=== PATIENT | female | born 2000 | race Caucasian/White ===

== ENCOUNTER 2019-04-06 23:40 | Emergency (ER) | payer SELFPAY ==
--- NOTE | 2019-04-07 00:07 | PHYS DOC ---
Past History Past Medical History Scoliosis Smoking: Non-smoker Alcohol Use: None Drug Use: None Adult General HPI HPI Patient is a 18-year-old female presents with back pain and numbness in bilateral hands. This has been present for the past 4 hours. Patient has a history of scoliosis with some chronic back pain issues. 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 No loss of bowel or bladder control. No trauma. No fever. No difficulty breathing. No relief with home ibuprofen. Symptoms are moderate to severe in intensity.[] Review of Systems Review of Systems Constitutional: Denies fever or chills [] Eyes: Denies change in visual acuity, redness, or eye pain [] HENT: Denies nasal congestion or sore throat [] Respiratory: Denies cough or shortness of breath [] Cardiovascular: No chest pain or palpitations[] GI: Denies abdominal pain, nausea, vomiting, bloody stools or diarrhea [] : Denies dysuria or hematuria [] Musculoskeletal: See history of present illness[] Integument: Denies rash or skin lesions [] Neurologic: Denies headache, focal weakness or sensory changes [] Endocrine: Denies polyuria or polydipsia [] All other systems were reviewed and found to be within normal limits, except as documented in this note. Physical Exam Physical Exam Constitutional: Well developed, well nourished, no acute distress, non-toxic appearance. [] HENT: Normocephalic, atraumatic, bilateral external ears normal, oropharynx moist, no oral exudates, nose normal. [] Eyes: PERRLA, EOMI, conjunctiva normal, no discharge. [] Neck: Normal range of motion, no tenderness, supple, no stridor. [] Cardiovascular:Heart rate regular rhythm, no murmur [] Lungs & Thorax: Bilateral breath sounds clear to auscultation [] Abdomen: Bowel sounds normal, soft, no tenderness, no masses, no pulsatile masses. [] Skin: Warm, dry, no erythema, no rash. [] Back: Diffuse tenderness, no specific midline tenderness, no step-off, no crepitus, normal gait., no CVA tenderness. [] Extremities: No tenderness, no cyanosis, no clubbing, ROM intact, no edema. [] Neurologic: Alert and oriented X 3, normal motor function, normal sensory function, no focal deficits noted. [] Psychologic: Affect normal, judgement normal, mood normal. [] EKG EKG [] Radiology/Procedures Radiology/Procedures Thoracic spine x-ray series shows no significant scoliosis, no fracture, no subluxation.[] Course & Med Decision Making Course & Med Decision Making Pertinent Labs and Imaging studies reviewed. (See chart for details) ED course: Patient arrived, was placed in bed, and tolerated exam well. She was given medicine for the pain which didn't improve it. She was transported to and from radiology with any complications. After return of the imaging findings, th tisha were discussed with patient and family voiced understanding. All questions were answered. Patient was discharged in improved condition. Medical decision making: There is no evidence of fracture or subluxation. No evidence of neurologic compromise.[] Dragon Disclaimer Dragon Disclaimer This electronic medical record was generated, in whole or in part, using a voice recognition dictation system. Departure Departure: Impression: Primary Impression: Back pain Disposition: HOME, SELF-CARE Condition: IMPROVED Referrals: PATRICIA RICKETTS MD (PCP) Follow-up in 2 days Patient Instructions: Back Pain, Adult Additional Instructions: Follow-up with your regular doctor in 2 days. Take the medication as prescribed. Return to the ER if worsening discomfort or any other concerns. Scripts Orphenadrine Citrate (ORPHENADRINE CITRATE) 100 Mg Tablet.er 100 MG PO BID for BACK PAIN, #20 TAB.SR Prov: NORA CANTRELL DO 04/07/19 Meloxicam (MELOXICAM) 7.5 Mg Tablet 7.5 MG PO DAILY for PAIN, #20 TAB Prov: NORA CANTRELL DO 04/07/19 Problem Qualifiers Primary Impression: Back pain Back pain location: thoracic back pain Chronicity: acute Back pain laterality: bilateral Qualified Codes: M54.6 - Pain in thoracic spine NORA CANTRELL DO Apr 07, 2019 00:07
[2019-04-07] MEDS ORDERED: KETOROLAC 15 MG/ML VIAL. IM ONE (00:30)
[2019-04-07] MEDS ORDERED: ORPHENADRINE CITRATE 60 MG/2 ML VIAL. IM ONE (00:30)
[2019-04-07] MEDS ORDERED: ORPH-16 PO (01:24)
[2019-04-07] MEDS ORDERED: MELO7.5T29 PO (01:24)
--- NOTE | 2019-04-07 01:58 | RAD ---
Three-view thoracic spine radiographs 04/07/2019 CLINICAL HISTORY: Mid back pain. AP, two lateral and a swimmer's lateral digital radiographs of the thoracic vertebrae were obtained. A left-sided vagal nerve stimulator is noted. Minimal S-shaped curvature of the thoracolumbar spine is seen. No fracture or subluxation of the thoracic vertebrae is seen. No significant degenerative changes are noted. No paravertebral soft tissue swelling is seen. IMPRESSION: No acute osseous abnormality is seen. Electronically signed by: Tate Marcano MD (04/07/2019 1:56 AM) [facility]
== END 2019-04-07 01:33 | disposition home or self-care (01) ==
LOC: ER 23:40
DX: M54.6 Pain in thoracic spine (principal); G89.29 Other chronic pain; R20.0 Anesthesia of skin
CPT/HCPCS: 72072; 81025; 96372; 99284; J1885; J2360

== ENCOUNTER 2020-04-28 21:41 | Emergency (ER) | payer MEDICAID ==
[~2020-04-28] VITALS: Ht 172.7 cm; Wt 138.6 kg
[~2020-04-28 21:41] MED LIST: MELO7.5T29 PO; ORPH-16 PO
--- NOTE | 2020-04-28 22:06 | PHYS DOC ---
Past History Past Medical History: Anxiety, Seizure Past Surgical History: No Surgical History Smoking: Non-smoker Alcohol Use: None Drug Use: None General Adult EDM: Chief Complaint: CHEST PAIN HPI: HPI: Patient is a 19 year old female who presents for evaluation of left-sided chest pain and left-sided abdominal pain. Onset of symptoms over the past couple of hours. Patient states she has had some diminished urination today after being outside in the heat. Patient states she is not been drinking enough fluid today. She states she felt dizzy and nauseated prior to arrival. There is no reported burning urgency or frequency with urination however. Patient has a history of prior seizures but has not had one recently. Patient denies other complaints and has stable vital signs Review of Systems: Review of Systems: Constitutional: Denies fever or chills Eyes: Denies change in visual acuity HENT: Denies nasal congestion or sore throat Respiratory: Denies cough or shortness of breath Cardiovascular: Denies chest pain or edema GI: left side abdominal pain with nausea, but no vomiting, bloody stools or diarrhea : Denies dysuria Musculoskeletal: left flank/back pain but no joint pain Integument: Denies rash Neurologic: Denies headache, focal weakness or sensory changes Endocrine: Denies polyuria or polydipsia Lymphatic: Denies swollen glands Psychiatric: Denies depression has anxiety Heart Score: HEART Score for Chest Pain: HEART Score for Chest Pain Response (Comments) Value History Slighlty/Non-Suspicious 0 ECG Normal 0 Age < 45 0 Risk Factors No Risk Factors 0 Troponin < Normal Limit 0 Total 0 Risk Factors: Risk Factors: DM, Current or recent (<one month) smoker, HTN, HLP, family history of CAD, obesity. Risk Scores: Score 0 - 3: 2.5% MACE over next 6 weeks - Discharge Home Score 4 - 6: 20.3% MACE over next 6 weeks - Admit for Clinical Observation Score 7 - 10: 72.7% MACE over next 6 weeks - Early Invasive Strategies Allergies: Allergies: Allergies Coded Allergies Type Severity Reaction Last Updated Verified Penicillins Allergy Unknown Rash 04/07/19 Yes Sulfa (Sulfonamide Antibiotics) Allergy Unknown Rash 04/07/19 Yes cyclobenzaprine Allergy Unknown 04/07/19 Yes erythromycin base Allergy Unknown 04/07/19 Yes escitalopram Allergy Unknown Rash 04/07/19 Yes alprazolam Adverse Reaction Unknown 04/07/19 Yes Physical Exam: PE: Constitutional: Well developed, well nourished, mild acute distress, non-toxic appearance. [] HENT: Normocephalic, atraumatic, bilateral external ears normal, oropharynx moist, no oral exudates, nose normal. [] Eyes: PERRL, EOMI, conjunctiva normal, no discharge. [] Neck: Normal range of motion, no tenderness, supple, no stridor. [] Cardiovascular:Heart rate regular rhythm, no murmur [] Lungs & Thorax: Bilateral breath sounds clear to auscultation [] Abdomen: Bowel sounds diminished, abdomen is soft, mild left lateral tenderness, no masses, no pulsatile masses. [] Skin: Warm, dry, no erythema, no rash. [] Back: No tenderness, mild left CVA tenderness. [] Extremities: No tenderness, no cyanosis, ROM intact, no edema. [] Neurologic: Alert and oriented, normal motor function, normal sensory function, no focal deficits noted. [] Psychologic: Affect abnormal, judgement normal, mood abnormal. [] Current Patient Data: Labs: Laboratory Tests Test 04/28/20 21:55 04/28/20 21:58 04/28/20 22:12 White Blood Count 7.4 x10^3/uL Red Blood Count 4.78 x10^6/uL Hemoglobin 13.0 g/dL Hematocrit 39.3 % Mean Corpuscular Volume 82 fL Mean Corpuscular Hemoglobin 27 pg Mean Corpuscular Hemoglobin Concent 33 g/dL Red Cell Distribution Width 15.9 % Platelet Count 206 x10^3/uL Neutrophils (%) (Auto) 48 % Lymphocytes (%) (Auto) 40 % Monocytes (%) (Auto) 9 % Eosinophils (%) (Auto) 3 % Basophils (%) (Auto) 1 % Neutrophils # (Auto) 3.5 x10^3uL Lymphocytes # (Auto) 2.9 x10^3/uL Monocytes # (Auto) 0.7 x10^3/uL Eosinophils # (Auto) 0.2 x10^3/uL Basophils # (Auto) 0.0 x10^3/uL Sodium Level 140 mmol/L Potassium Level 3.8 mmol/L Chloride Level 103 mmol/L Carbon Dioxide Level 26 mmol/L Anion Gap 11 Blood Urea Nitrogen 9 mg/dL Creatinine 0.9 mg/dL Estimated GFR (Cockcroft-Gault) 79.8 BUN/Creatinine Ratio 10 Glucose Level 95 mg/dL Calcium Level 9.3 mg/dL Total Bilirubin 0.2 mg/dL Aspartate Amino Transf (AST/SGOT) 33 U/L Alanine Aminotransferase (ALT/SGPT) 76 U/L Alkaline Phosphatase 58 U/L Troponin I Quantitative < 0.017 ng/mL Total Protein 7.5 g/dL Albumin 3.7 g/dL Albumin/Globulin Ratio 1.0 Lipase 77 U/L Serum Test, Qualitative Negative Urine Collection Type Unknown Urine Color Yellow Urine Clarity Hazy Urine pH 7.0 Urine Specific [place] 1.015 Urine Protein Neg Urine Glucose (UA) Neg mg/dL Urine Ketones (Stick) Neg mg/dL Urine Blood Neg Urine Nitrite Neg Urine Bilirubin Neg Urine Urobilinogen Dipstick 1.0 mg/dL Urine Leukocyte Esterase Neg Urine RBC 0 /HPF Urine WBC Occ /HPF Urine Squamous Epithelial Cells Many /LPF Urine Bacteria Few /HPF Bedside Urine HCG, Qualitative hcg negative EKG: EKG: Normal sinus rhythm, rate 75, inverted T waves lead III, not STEMI, sinus arrhythmia, read at 2205 [] Radiology/Procedures: Radiology/Procedures: [place] [id number] IMAGING REPORT Signed PATIENT: KESHIA MCCABE AACCOUNT: [id number] : 2000 LOCATION: ER AGE: 19 SEX: F EXAM STATUS: REG ER ORD. PHYSICIAN: RAFAL HOPE DO REASON: left flank pain PROCEDURE: CT ABDOMEN PELVIS WO CONTRAST INDICATION: Reason: left flank pain / Spl. Instructions: / History: COMPARISON: None. TECHNIQUE: Axial CT images obtained through the abdomen and pelvis without contrast. One or more of the following individualized dose reduction techniques were utilized for this examination: 1. Automated exposure control; 2. Adjustment of the mA and/or kV according to patient size; 3. Use of iterative reconstruction technique. FINDINGS: Abdominal aorta is nonaneurysmal. Prominent lymph nodes are seen scattered throughout the mesentery and retroperitoneum. Postcholecystectomy changes. Limited assessment of pancreas without contrast. Spleen unremarkable. Minimal prominence of bilateral extrarenal pelvis. No radiopaque obstructive ureter stone. Urinary bladder is partially distended. No periappendiceal inflammatory changes. No dilated loops of bowel to suggest obstruction. There are some degenerative changes within the spine with disc protrusions and osteophyte formation. IMPRESSION: * No significant hydronephrosis or radiopaque obstructive ureter stone. * No evidence of bowel obstruction or appendicitis. * There are scattered prominent lymph nodes. Electronically signed by: Jayla Sparrow MD (04/28/2020 11:17 PM) [id number] DICTATED AND SIGNED BY: JAYLA SPARROW MD DATE: 04/28/202316 CC: NON,STAFF; RAFAL HOPE DO ~ Impressions: [id number] [id number] IMAGING REPORT Signed PATIENT: KESHIA MCCABE AACCOUNT: [id number] : 2000 LOCATION: ER AGE: 19 SEX: F EXAM STATUS: REG ER ORD. PHYSICIAN: RAFAL HOPE DO REASON: left side chest pain PROCEDURE: PORTABLE CHEST 1V AP portable chest radiograph 04/28/2020 Clinical History: Left-sided chest pain. An AP portable digital radiograph of the chest was obtained. No previous studies are available for comparison. A vagal nerve stimulator overlies the left anterolateral chest superiorly the cardiac and mediastinal silhouettes are within normal limits in size and configuration. No pulmonary infiltrate is seen. No pleural effusion or pneumothorax is noted. The osseous structures are grossly intact. IMPRESSION: No acute abnormality is seen. Electronically signed by: Tate Marcano MD (04/28/2020 10:39 PM) [id number] DICTATED AND SIGNED BY: TATE MARCANO MD DATE: 04/28/202238 CC: NON,STAFF; RAFAL HOPE DO ~ Course & Med Decision Making: Course & Med Decision Making Pertinent Labs and Imaging studies reviewed. (See chart for details) [] Dragon Disclaimer: Dragon Disclaimer: This electronic medical record was generated, in whole or in part, using a voice recognition dictation system. 2325 stable, feeling much better at this time. Patient no longer dizzy or nauseated. She no longer has any left flank pain either. CT scan left side to evaluate for kidney stone was essentially normal. Urinalysis and blood work also unremarkable. Patient is not . Close follow-up recommended and patient advised to stay hydrated Departure Departure: Impression: Primary Impression: Left-sided chest pain Additional Impressions: Left flank pain Mild dehydration Disposition: HOME/RESIDENCE PRIOR TO ADM Condition: STABLE Referrals: NON,STAFF (PCP) Patient Instructions: Chest Pain (Nonspecific), [id number], Dehydration, Adult, [id number], Flank Pain, [id number] Additional Instructions: Drink plenty fluids, rest, take nausea medication as needed. There is no dangerous cause of your chest or abdominal pain today. Your lab work and urinalysis were essentially normal Scripts Ondansetron Hcl (ZOFRAN) 4 Mg Tablet 1 TAB PO PRN Q6HRS PRN for NAUSEA, #6 TAB Prov: RAFAL HOPE DO 04/28/20 Justification of Admission: Justification of Admission: Justification of Admission Dx: N/A RAFAL HOPE DO Apr 28, 2020 22:06
[2020-04-28 22:16] LABS: BASO % 1 % (0-3); EOS # 0.2 x10^3/uL (0.0-0.7); EOS % 3 % (0-3); HEMATOCRIT 39.3 % (36.0-47.0); LYMPH # 2.9 x10^3/uL (1.0-4.8); LYMPH % 40 % (24-48); MEAN CORPUSCULAR HEMOGLOBIN 27 pg (25-35); MEAN CORPUSCULAR HGB CONC 33 g/dL (31-37); MEAN CORPUSCULAR VOLUME 82 fL (79-100); MONO # 0.7 x10^3/uL (0.0-1.1); MONO % 9 % (0-9); NEUT # 3.5 x10^3uL (1.8-7.7); NEUT % 48 % (31-73); PLATELET COUNT 206 x10^3/uL (140-400); RED BLOOD COUNT 4.78 x10^6/uL (3.50-5.40); RED CELL DISTRIBUTION WIDTH 15.9 % (11.5-14.5); WHITE BLOOD COUNT 7.4 x10^3/uL (4.0-11.0)
[2020-04-28 22:22] LABS: CALCIUM 9.3 mg/dL (8.5-10.1); CREATININE 0.9 mg/dL (0.6-1.0); GFR 79.8; POTASSIUM 3.8 mmol/L (3.5-5.1)
[2020-04-28 22:23] LABS: PREG TEST PT QUAL NEGATIVE (NEG)
[2020-04-28 22:28] LABS: ALBUMIN 3.7 g/dL (3.4-5.0); TOTAL BILIRUBIN 0.2 mg/dL (0.2-1.0); TOTAL PROTEIN 7.5 g/dL (6.4-8.2)
[2020-04-28 22:32] LABS: BACTERIA,URINE FEW /HPF (0-FEW); BILIRUBIN,URINE NEG (NEG); CLARITY,URINE HAZY; COLOR,URINE YELLOW; GLUCOSE,URINE NEG (NEG); NITRITE,URINE NEG (NEG); RBC,URINE 0 /HPF (0-2); SQUAMOUS EPITHELIAL CELL,UR MANY /LPF; WBC,URINE OCC /HPF (0-4)
--- NOTE | 2020-04-28 22:42 | RAD ---
AP portable chest radiograph 04/28/2020 Clinical History: Left-sided chest pain. An AP portable digital radiograph of the chest was obtained. No previous studies are available for comparison. A vagal nerve stimulator overlies the left anterolateral chest superiorly the cardiac and mediastinal silhouettes are within normal limits in size and configuration. No pulmonary infiltrate is seen. No pleural effusion or pneumothorax is noted. The osseous structures are grossly intact. IMPRESSION: No acute abnormality is seen. Electronically signed by: Tate Marcano MD (04/28/2020 10:39 PM) [id number]
[2020-04-28] MEDS ORDERED: KETOROLAC 30 MG/ML VIAL. IM ONE (23:00)
[2020-04-28] MEDS ORDERED: ONDANSETRON ODT 4 MG TAB.RAPDIS PO ONE (23:00)
--- NOTE | 2020-04-28 23:20 | RAD ---
INDICATION: Reason: left flank pain / Spl. Instructions: / History: COMPARISON: None. TECHNIQUE: Axial CT images obtained through the abdomen and pelvis without contrast. One or more of the following individualized dose reduction techniques were utilized for this examination: 1. Automated exposure control; 2. Adjustment of the mA and/or kV according to patient size; 3. Use of iterative reconstruction technique. FINDINGS: Abdominal aorta is nonaneurysmal. Prominent lymph nodes are seen scattered throughout the mesentery and retroperitoneum. Postcholecystectomy changes. Limited assessment of pancreas without contrast. Spleen unremarkable. Minimal prominence of bilateral extrarenal pelvis. No radiopaque obstructive ureter stone. Urinary bladder is partially distended. No periappendiceal inflammatory changes. No dilated loops of bowel to suggest obstruction. There are some degenerative changes within the spine with disc protrusions and osteophyte formation. IMPRESSION: * No significant hydronephrosis or radiopaque obstructive ureter stone. * No evidence of bowel obstruction or appendicitis. * There are scattered prominent lymph nodes. Electronically signed by: Domingo Funez MD (04/28/2020 11:17 PM) [id number]
[2020-04-28 23:29] VITALS: BP 140/92
[2020-04-28] MEDS ORDERED: ONDA4TAB7 PO (23:29)
--- NOTE | 2020-04-29 00:56 | EKG ---
[address] [address] Test Date: 2020-04-28 Test Time: 22:00:04 Pat Name: KESHIA MCCABE Department: Room: Gender: F [employer] Team Lead: : 2000 Requested By: RAFAL HOPE Order Number: [id number] Reading MD: Measurements Intervals [place] Rate: 75 P: 28 NE: 174 QRS: 19 QRSD: 90 T: 12 QT: 366 QTc: 411 Interpretive Statements SINUS ARRHYTHMIA OTHERWISE NORMAL ECG RI6.02 No previous ECG available for comparison
== END 2020-04-29 00:01 | disposition home or self-care (01) ==
LOC: ER 21:41
DX: R07.89 Other chest pain (principal); E86.0 Dehydration; R10.9 Unspecified abdominal pain; F41.9 Anxiety disorder, unspecified; Z88.0 Allergy status to penicillin; Z88.2 Allergy status to sulfonamides; Z88.1 Allergy status to other antibiotic agents; Z88.8 Allergy status to other drugs, medicaments and biological substances
CPT/HCPCS: 36415; 71045; 74176; 80053; 81001; 81025; 83690; 84484; 84703; 85025; 93005; 96372; 99285; J1885; Q0162